=== PATIENT | female | born 1945 | race Caucasian/White ===

== ENCOUNTER 2018-04-22 17:33 | Emergency (ER) | payer MEDICARE ==
[~2018-04-22] VITALS: Ht 154.9 cm; Wt 86.4 kg
--- OUTSIDE RECORDS SUMMARY | 2018-04-22 17:35 | XMS REPORT | Summary of Care ---
Author Author TOÑO CALDERA M.D. Organization Unknown Address [facility] Phone Unavailable Care Team Providers Care Aligner Typewriter Name Role Phone TOÑO CALDERA M.D. Unavailable Unavailable TOÑO COTO Unavailable Unavailable Unavailable Unavailable Functional Status Name Dates Details Functional status health issues are not documented Status: Name Dates Details Cognitive status health issues are not documented Status: Problems Name Dates Details Caffeine use (V49.89, Z78.9) Status: Active Acute carpal tunnel syndrome, right (354.0, G56.01) Status: Active Acute carpal tunnel syndrome of left wrist (354.0, G56.02) Status: Active Medications Name Dates Details Medications not documented Allergies and Adverse Reactions Name Dates Details Allergy history not documented Status: Past Medical History Name Dates Details History of arthritis (V13.4, Z87.39) Status: Resolved History of back pain (V13.59, Z87.39) Status: Resolved History of hypertension (V12.59, Z86.79) Status: Resolved History of No significant past medical history Status: Resolved Procedures Procedure Dates Details Procedures not documented Immunization Name Dates Details Immunizations not documented Family History Name Dates Details Family history of diabetes mellitus (V18.0, Z83.3) Status: Active Family history of hypertension (V17.49, Z82.49) Status: Active Social History Name Dates Details - Status: Name Dates Details Never smoker Vital Signs Date Test Result Details No Known Vitals to report Results Date Description Value Details Results not documented Plan of Care Name Dates Details Planned Observations Planned Goals not documented Planned Encounters Appointment; TOÑO CALDERA M.D. On: 06-May-2018 9:00 Interventions Provided Plan* Completed at Today's Appointment: * Injection * Patient Education/Instructions: * Patient Education Provided * Reassurance * Orders: * Occupational Therapy * Medications: * - Indocin 25mg. Take 1 every 8 hours as needed for pain. Indocin (indomethacin) is an anti-inflammatory, pain medication. Take with food and only as prescribed by a physician. * - Take 500mg - 1000mg of acetaminophen (Tylenol) every 4-6 hours as needed for relief of pain, discomfort, or fever. Do NOT take more than 4000mg in a 24 hour period (can cause liver damage in higher doses). * Injections. (CTS steroid injections ). * Follow Up: * Return to the clinic in 6 weeks or as needed. * Return to the clinic in 2 months or as needed. Instructions Name Dates Details Instructions not documented Encounters Appointment; TOÑO CALDERA M.D. Encounter Diagnosis: Problem not documented On: 19-Feb-2017 8:45 Appointment; TOÑO CALDERA M.D. Encounter Diagnosis: Problem not documented On: 02-Apr-2017 8:45 Appointment; TOÑO CALDERA M.D. Encounter Diagnosis: Problem not documented On: 18-Mar-2018 7:15
[2018-04-22] MEDS ORDERED: METOPROLOL TART50 MG PO (18:04)
[2018-04-22] MEDS ORDERED: IBUPROFEN400 MG PO (18:04)
[2018-04-22] MEDS ORDERED: PRAVASTATIN SOD40 MG (18:04)
[2018-04-22] MEDS ORDERED: ROPINIROLE HCL1 MG PO (18:04)
[2018-04-22] MEDS ORDERED: HYDROCHLOROTHIA25 MG (18:04)
[2018-04-22] MEDS ORDERED: AMLODIPINE BESY10 MG PO (18:04)
[2018-04-22] MEDS ORDERED: LISINOPRIL10 MG PO (18:04)
[2018-04-22] MEDS ORDERED: ASPIR 8181 MG (18:04)
[2018-04-22] MEDS ORDERED: CYCLOBENZAPRINE HCL 10 MG TAB PO ONE (18:45)
[2018-04-22] MEDS ORDERED: KETOROLAC TROMETHAMINE 60 MG/2 ML VIAL IM ONE (18:45)
[2018-04-22 19:02] VITALS: BP 126/74
== END 2018-04-22 19:15 | disposition home or self-care (01) ==
LOC: FSED 17:33
DX: M54.5 Low back pain (principal); S39.012A Strain of muscle, fascia and tendon of lower back, initial encounter; S29.012A Strain of muscle and tendon of back wall of thorax, initial encounter
CPT/HCPCS: 99283; J1885

== ENCOUNTER → 2018-07-14 | Outpatient (CLI) | payer MEDICARE ==
[~2018-07-14] MED LIST: AMLODIPINE BESY10 MG PO; ASPIR 8181 MG; HYDROCHLOROTHIA25 MG; IBUPROFEN400 MG PO; LISINOPRIL10 MG PO; METOPROLOL TART50 MG PO; PRAVASTATIN SOD40 MG; ROPINIROLE HCL1 MG PO
--- NOTE | 2018-07-14 13:16 | Diagnostic Imaging Report ---
EXAMINATION: Thyroid ultrasound. CLINICAL HISTORY: Elevated thyroid enzymes COMPARISON: None. . DISCUSSION: Transverse and longitudinal images of the thyroid were obtained utilizing grayscale and color Doppler modalities. The right thyroid lobe measures 4.4 x 1.4 x 1.6 cm and shows normal echogenicity. Nodules: Upper pole, 1.2 x 0.8 x 0.8 cm, solid (2), hypoechoic (2), wider than tall (0), smoothly marginated (0), no echogenic foci (0). TR 4 The left thyroid lobe measures 4.1 x 1.4 x 1.5 cm and shows normal echogenicity. Nodules: Interpolar, solid (2), hypoechoic (2), wider than tall (0), smoothly marginated (0), no echogenic foci (0). TR 4 The thyroid isthmus measures 0.4 cm and shows normal echogenicity. No nodules are seen. There is no adenopathy. IMPRESSION: Bilateral thyroid nodules as above. Follow-up thyroid ultrasound in one year is suggested for 1.2 cm TR 4 nodule in the right upper lobe per ACR TIRADS criteria. Signed by: Dr. Ryan Saucedo M.D. on 07/14/2018 1:12 PM
== END ==
LOC: US 10:55
PROVIDERS: ATTEND Family Medicine
DX: R94.6 Abnormal results of thyroid function studies (principal)
CPT/HCPCS: 76536